=== PATIENT | female | born 1985 | race Caucasian/White ===

== ENCOUNTER 2022-03-20 15:23 | Emergency (ER) | payer BC ==
[~2022-03-20] VITALS: Ht 160 cm; Wt 57.0 kg
[2022-03-20 15:32] VITALS: BP 122/78
== END 2022-03-20 22:42 | disposition left against medical advice (07) ==
LOC: ER 15:23
DX: Z53.21 Procedure and treatment not carried out due to patient leaving prior to being seen by health care provider (principal)